=== PATIENT | male | born 1950 | race Caucasian/White ===

== ENCOUNTER 2022-09-23 19:08 | Emergency (ER) | payer MEDICARE, SELFPAY ==
--- NOTE | ~2022-09-23 | XR_ITS ---
EXAMINATION: XR ankle RT min 3V, XR tibia fibula RT 2V DATE: 09/23/2022 21:02 INDICATION: Right lower leg and ankle injury TECHNIQUE: 1. Anteroposterior, oblique, mortise, and lateral views of the affected ankle were obtained. 2. AP and lateral views of the right tibia and fibula were obtained. COMPARISON: None. FINDINGS: Alignment is normal. No fracture. Joint spaces are normal at the right knee, ankle and visualized mid and hindfoot. Moderate-sized plantar calcaneal spur. No right knee or ankle joint effusion. Soft tis paulie swelling with subcutaneous edema about the medial aspect of the mid calf through the ankle. IMPRESSION: 1. No acute osseous abnormality. Reviewed, dictated and finalized at location A. IMPRESSION: 1. No acute osseous abnormality.
[2022-09-23 19:15] VITALS: BP 169/85; PULSE 70; RESP 18; TEMP 36.4; O2SAT 99
--- NOTE | 2022-09-23 21:37 | ED.FALL ---
HPI - Fall General Chief Complaint: Fall Stated Complaint: fall Time Seen by Provider: 09/23/22 20:40 Source: patient and family Mode of arrival: ambulatory Limitations: no limitations History of Present Illness HPI Narrative: 71-year-old with a history of hypertension, CAD on Plavix here with complaints of pain and swelling to his right ankle and leg. Patient states that he fell off the scaffolding about 2 feet. He denies any head and neck injuries. Patient states that he bruises easily has mild pain while walking. Onset (ago): hour(s) (2) Fall from: standing Place fall occurred: home Loss of consciousness: none Symptoms prior to fall: none Context: tripped/slipped Location of injury - extremities: Right: lower leg and ankle Severity: moderate Associated symptoms (after fall): denies Review of Systems Review of Systems: All systems reviewed & are unremarkable except as noted in HPI and below Constitutional: Constitutional: Reports no additional constitutional complaints Eyes: Eyes: Reports no additional eye complaints ENT: Reports system reviewed and no additional complaints, except as documented Cardiovascular: Cardiovascular: Reports no additional cardiovascular complaints Respiratory: Respiratory: Reports no additional respiratory complaints Gastrointestinal: Gastrointestinal: Reports no additional gastrointestinal complaints Musculoskeletal: Musculoskeletal: Reports as per HPI Exam Narrative: GENERAL: Well-appearing, well-nourished, and in no acute distress. HEAD: Normocephalic, atraumatic. EYES: PERRLA and EOMI. NECK: Supple. CHEST: Clear to auscultation. No respiratory distress. HEART: Regular rate and rhythm. No murmur heard. Normal peripheral pulses. EXTREMITIES: Normal range of motion. No edema. Examination of the right leg shows mild bruising at the lower part of the tib-fib and moderate amount of bruising noted around the ankle. Has a normal ROM of the ankle SKIN: Warm, dry, no rash. NEURO: No focal deficits. Alert and oriented x3. PSYCH: Normal mood and affect. Course Vital Signs Vital signs: Vital Signs Temperature 36.4 C 09/23/22 19:15 Pulse Rate 70 09/23/22 19:15 Respiratory Rate 18 09/23/22 19:15 Blood Pressure 169/85 H 09/23/22 19:15 Pulse Oximetry 99 09/23/22 19:15 Temperature 36.4 C 09/23/22 19:15 Pulse Rate 70 09/23/22 19:15 Respiratory Rate 18 09/23/22 19:15 Blood Pressure 169/85 H 09/23/22 19:15 Pulse Oximetry 99 09/23/22 19:15 MDM - Fall Imaging Data Radiologist's impression: ITS Impressions Ankle X-Ray 09/23/22 21:05 IMPRESSION: 1. No acute osseous abnormality. Tibia/Fibula X-Ray 09/23/22 21:05 IMPRESSION: 1. No acute osseous abnormality. Discharge Plan Discharge Clinical Impression: Contusion of leg, right Qualifiers: Encounter type: initial encounter Qualified Code(s): S80.11XA - Contusion of right lower leg, initial encounter Patient Disposition: Home, Self-Care Condition: Stable Instructions: Contusion in Adults (ED) Additional Instructions: Keep the leg elevated ice pack to the area can take Tylenol ibuprofen. Follow-up/Referrals: PHYSICIAN NOT ON STAFF,NONSTAFF [Primary Care Provider] - Alfredito Manuel MD [Physician] - Time of Disposition: 21:39
== END 2022-09-23 21:47 | disposition home or self-care (01) ==
PROVIDERS: Emergency Provider Family Medicine
DX: S80.11XA Contusion of right lower leg, initial encounter (principal); I25.10 Atherosclerotic heart disease of native coronary artery without angina pectoris; I10 Essential (primary) hypertension; Z79.02 Long term (current) use of antithrombotics/antiplatelets; W12.XXXA Fall on and from scaffolding, initial encounter
CPT/HCPCS: 73590; 73610; 99284